=== PATIENT | male | born 2000 | race Native Hawaiian/Other Pacific Islander ===

== ENCOUNTER → 2021-02-11 13:49 | Outpatient (CLI) | payer OTHER, SELFPAY ==
--- NOTE | 2021-02-11 13:53 | DI.MRI.S_ITS ---
PROCEDURE: MR ANKLE LT WO CON INDICATIONS: Left ankle pain TECHNIQUE: Noncontrast sagittal T1 spin echo and T2 fast spin echo with fat saturation, axial proton density fast spin echo and T2 fast spin echo with fat saturation, coronal T1 spin echo and T2 fast spin echo with fat saturation through the ankle/hindfoot. COMPARISON: None. FINDINGS: Image quality: Diagnostic. Patient motion is noted. Bones and joints: Nonspecific mild edema involving weight-bearing portion of mid talus is seen likely represent stress related changes. No discrete fracture line is seen. There is also mild edema involving medial periphery of medial malleolus without discrete fracture line. No other area of abnormal marrow signal. No hindfoot coalitions. No osteochondral injuries of the talar dome. No pathologic joint effusions. Medial structures: The posterior tibialis, flexor digitorum longus, and flexor hallucis longus tendons are intact. The posterior tibial neurovascular bundle appears normal within the tarsal tunnel, without extrinsic mass effect. The deep layer (anterior and posterior tibiotalar ligaments) and superficial layer (tibionavicular, tibiospring, and tibiocalcaneal ligaments) of the deltoid ligament appear normal. The spring ligament components (superomedial calcaneonavicular, medioplantar oblique calcaneonavicular, and inferoplantar longitudinal ligaments) are intact. Lateral structures: The anterior talofibular, calcaneofibular, and posterior talofibular ligaments appear mildly thickened with interstitial T2 hyperintense signal suggestive of sprain/low-grade partial-thickness tear.. More superiorly, the anterior and posterior tibiofibular ligaments appear intact, as is the intermalleolar ligament. The tibiofibular syndesmosis is normal in width at 2 mm or less. The peroneus longus and brevis tendons are thickened along lateral aspect of lateral malleolus and calcaneus suggestive of tendinosis and low-grade intrasubstance partial-thickness tear. No full-thickness tendon rupture.. Adjacent bony peroneal tubercle and retrotrochlear prominence are normal in size. The sinus tarsi demonstrates normal fatty signal, without edema, fibrosis, or cyst formation. Visualized sinus tarsi components (cervical ligament, interosseous talocalcaneal ligament, roots of the inferior extensor retinaculum) appear normal. The calcaneonavicular and calcaneocuboid components of the bifurcate ligament appear intact. The dorsal calcaneocuboid ligament appears intact. Anterior structures: The tibialis anterior, extensor hallucis longus, and extensor digitorum longus tendons appear intact. The dorsal talonavicular ligament appears intact. Posterior and plantar structures: Achilles tendon is intact. Medial and lateral bands of the plantar fascia are of normal thickness. No abductor digiti quinti muscle atrophy to suggest Carroll neuropathy. IMPRESSION: 1. Finding is suggestive of tendinosis/low-grade intrasubstance partial-thickness tear involving peroneus tendons along posterior lateral aspect of lateral malleolus and along lateral aspect of calcaneus. Rest of the ankle tendons are intact. 2. Low-grade sprain/intrasubstance partial-thickness tear involving anterior and posterior talofibular ligaments and calcaneofibular ligament. Medial ankle ligaments are intact. 3. Mild edema involving weight-bearing portion of talus and medial periphery of medial malleolus likely represent stress related changes versus contusion. No fracture or dislocation. No osteochondral lesion of talar dome. Dictated by: Shaq Burgess M.D. on 02/11/2021 at 15:02 Approved by: Shaq Burgess M.D. on 02/11/2021 at 15:11
== END ==
DX: S96.812A Strain of other specified muscles and tendons at ankle and foot level, left foot, initial encounter (principal); S93.492A Sprain of other ligament of left ankle, initial encounter
CPT/HCPCS: 73721